=== PATIENT | male | born 1955 | race Caucasian/White ===

== ENCOUNTER 2021-01-17 20:10 | Emergency (ER) | payer OTHER, SELFPAY ==
[2021-01-17 20:17] VITALS: BP 174/114; PULSE 77; PULSE 88; RESP 18; TEMP 36.3; O2SAT 94; O2SAT 98
[2021-01-17 20:20] VITALS: BP 174/114; PULSE 88; O2SAT 94
--- NOTE | 2021-01-17 20:22 | ED.DENTAL ---
HPI - Dental/Oral General Chief complaint: Dental/Oral Stated complaint: Lower left jaw pain Time Seen by Provider: 01/17/21 20:17 Source: patient and family Mode of arrival: ambulatory Limitations: no limitations History of Present Illness HPI Narrative: Patient is a 65-year-old male who presents to emergency department for evaluation of left lower jaw pain history of gross dental decay notes pain and numbness to the left lower jaw has been there for over 5 days has a dental appointment for Tuesday patient denies URI symptoms or other complaints. Related Data Allergies Allergy/AdvReac Type Severity Reaction Status Date / Time No Known Allergies Allergy Verified 01/17/21 20:20 Review of Systems Review of Systems: All systems reviewed & are unremarkable except as noted in HPI and below PMFSH Past Medical History Medical History Anticoagulation adequate Hypertension Obesity Pericarditis Social History Social History (Updated 01/17/21 @ 20:23 by Aries Valladares PA-C) Smoking status: Never smoker Exam Narrative: Exam Narrative: GENERAL: Well-appearing, well-nourished, and in no acute distress. HEAD: Normocephalic, atraumatic. EYES: PERRLA and EOMI. ENT: Nares clear, no rhinorrhea or epistaxis. Mucous membranes moist. Gross dental caries no space-occupying lesions floor the mouth is soft uvula midline no trismus or drooling no facial swelling tenderness along the outside lower jaw CHEST: Clear to auscultation. No respiratory distress. No wheezes rales or rhonchi HEART: Regular rate and rhythm. No murmur heard. Normal peripheral pulses. ABDOMEN: Soft, nontender, nondistended EXTREMITIES: Normal range of motion. No edema. SKIN: Warm, dry, no rash. NEURO: No focal deficits. Alert and oriented x3. Cranial nerves II through XII grossly intact PSYCH: Normal mood and affect. Course Course Emergency Course: Patient in the room no distress aware of case findings treatment plan diagnosis agreeing to follow-up as directed or to return if symptoms worsen or concerns Vital Signs Vital signs: Vital Signs Temperature 97.4 F L 01/17/21 20:17 Pulse Rate 77 01/17/21 20:17 Respiratory Rate 18 01/17/21 20:17 Blood Pressure 174/114 H 01/17/21 20:17 Pulse Oximetry 98 02/27/21 20:17 Temperature 97.4 F L 01/17/21 20:17 Pulse Rate 88 01/17/21 20:20 Respiratory Rate 18 01/17/21 20:17 Blood Pressure 174/114 H 01/17/21 20:20 Pulse Oximetry 94 01/17/21 20:20 MDM - Dental/Oral MDM Narrative Medical decision making narrative: Patients pain and complaint coupled with physical findings are consistent with dentalgia. There are no focal signs of space occupying lesions that are compromising to the airway. The floor of the mouth is soft with no signs of Demarco Angina. Patient is without trismus or drooling and able to swallow secretions. Patient is felt appropriate for discharge home with dental follow up. Discharge Plan Discharge Clinical Impression: Dental abscess Patient Disposition: Home, Self-Care Condition: Stable Instructions: Antibiotic Form, Dental Abscess (ED) Additional Instructions: Follow up with your primary care provider within 5-7 days. Go to ER for shortness of breath, difficulty breathing, chest pain, fever/chills, weakness, nauseau/vomitting, unable to swallow or open the mouth etc. or any other concerns. Follow-up with dentistry Tuesday as planned Take any prescribed medications as directed. Stay well-hydrated If you do not have a drug allergy to tylenol or motrin and can tolerate it then take tylenol or motrin as needed for discomfort/pain. Prescriptions: New hydrocodone-acetaminophen 5-325 mg tablet 1 tablet PO Q6H PRN (Reason: pain) Qty: 20 RF: 0 amoxicillin-pot clavulanate [Augmentin] 875-125 mg tablet 1 tablet PO Q12H 10 Days Qty: 20 RF: 0 chlorhexidine gluconate [Peridex] 0.12 % mouthwash
[2021-01-17] MEDS: HYDROcodone/acetaminophen (*CRX) 7.5-325 MG TABLET 1 TAB PO (20:28)
== END 2021-01-17 21:18 | disposition home or self-care (01) ==
PROVIDERS: Emergency Provider Emergency Medicine
DX: K04.7 Periapical abscess without sinus (principal); I10 Essential (primary) hypertension; E66.9 Obesity, unspecified; I31.9 Disease of pericardium, unspecified
CPT/HCPCS: 99283; A9270

== ENCOUNTER 2022-05-25 10:08 | Emergency (ER) | payer OTHER, SELFPAY ==
[2022-05-25] VITALS (12 sets, daily range): BP systolic 140–164; BP diastolic 89–105; PULSE 75–136; RESP 13–25; TEMP 36.3–36.7; O2SAT 95–98
--- NOTE | ~2022-05-25 | XR_ITS ---
XR chest 1V portable DATE: 05/25/2022 15:07 INDICATION: Tachycardia TECHNIQUE: Portable upright AP views on 05/25/2022 at 1502 and 1503 hours COMPARISON: 05/25/2022 CT abdomen pelvis FINDINGS: Status post sternotomy. Pericardial and mitral annulus calcifications overlie the cardiac silhouette. Borderline heart size. Discoid atelectasis or scarring in the lower lung zones. No pulmonary consolidation is evident. Proba ble chronic mild left pleural thickening and costophrenic angle blunting. No pleural effusion or pneu mothorax. IMPRESSION: Mild bibasilar discoid atelectasis or scarring Status post sternotomy Borderline heart size. Pericardial and mitral annulus calcifications Reviewed, dictated and finalized at location A.
--- NOTE | ~2022-05-25 | CT_ITS ---
EXAMINATION: CT abdomen pelvis wo con DATE: 05/25/2022 12:47 INDICATION: Diarrhea and abdominal pain TECHNIQUE: Computed tomography (CT) of the abdomen and pelvis was performed without intravenous contr ast. The dose-length product (DLP) was 1397.07 mGy-cm. Automated exposure control and iterative recon struction technique were employed. COMPARISON: None FINDINGS: Minimal dependent atelectasis is present in the lung bases. Cardiomegaly is noted. There is calcification of the mitral annulus. There is also calcification of the pericardium. The liver is di ffusely low in attenuation when compared with the spleen, consistent with hepatic steatosis. The sple en, pancreas, and adrenal glands are normal. The gallbladder is mildly distended, likely due to fasti ng state There is a 2 mm nonobstructing stone of the left kidney. There is a 1 mm nonobstructing ston e of the right kidney. No stones are identified in the ureters or bladder. There is no hydronephrosis or hydroureter. There is calcified atherosclerosis of the aorta and many of the other arteries. No p athologically enlarged abdominal or pelvic lymph nodes are identified. An IVC filter is noted. There is a right inguinal hernia containing fat. There is severe lumbar spondylosis. IMPRESSION: 1. No CT correlate for the patient's symptoms. 2. Diffuse hepatic steatosis. 3. Bilateral nonobstructing nephrolithiasis. Reviewed, dictated and finalized at location B.
--- NOTE | 2022-05-25 10:41 | ECG_ITS ---
Measurements Intervals [place] Rate: 111 P: ID: 0 QRS: 67 QRSD: 118 T: -74 QT: 350 QTc: 477 Interpretive Statements ATRIAL FIBRILLATION WITH RAPID VENTRICULAR RESPONSE INCOMPLETE RIGHT BUNDLE BRANCH BLOCK ST-T WAVE ABNORMALITY IN ANTEROLAT/INF LEADS- CONSIDER ISCHEMIA ABNORMAL ECG Electronically Signed On 05-25-2022 10:59:54 CDT by Missael Low D.O.
[2022-05-25 10:56] LABS: Basophils Absolute Auto 0.1 K/mm3 (0.0-0.1); Eosinophils Absolute Auto 0.1 K/mm3 (0-0.3); Eosinophils Percent Auto 1.2 % (0-4.4); Hematocrit 48.3 % (42.0-52.0); Hemoglobin 16.1 g/dL (14.0-18.0); Immature Granulocyte Absolute 0.03 K/mm3 (0.00-0.031); Immature Granulocyte Percent A 0.4 % (0-0.5); Lymphocytes Absolute Auto 2.64 K/mm3 (0.9-3.2); Lymphocytes Percent Auto 32.4 % (18.3-44.2); Mean Corpuscular HGB Conc 33.3 g/dl (32-36); Mean Corpuscular Hemoglobin 30.6 pg (26-34); Mean Corpuscular Volume 91.7 fl (80-100); Mean Platelet Volume 9.8 fl (7.4-10.4); Monocytes Absolute Auto 0.8 K/mm3 (0.1-0.6); Monocytes Percent Auto 10.3 % (2.6-8.5); Neutrophils Absolute Auto 4.5 K/mm3 (1.3-6.7); Neutrophils Percent Auto 54.7 % (45.5-73.1); Platelet Count Result 345 k/mm3 (150-375); Red Blood Count 5.27 M/mm3 (4.6-6.20); Red Cell Distribution Width 13.8 % (11.5-14.5); White Blood Count 8.2 K/mm3 (4.5-10.0)
[2022-05-25 11:07] LABS: Alanine Aminotransferase 43 U/L (6-50); Albumin Level 4.7 g/dL (3.5-5.1); Alkaline Phosphatase 105 U/L (38-126); Anion Gap 12 mmol/L (8-16); Aspartate Amino Transferase 32 U/L (17-59); Bilirubin,Total 1.2 mg/dL (0.2-1.3); Blood Urea Nitrogen 15 mg/dL (9-20); Carbon Dioxide 19 mmol/L (22-30); Chloride 107 mmol/L (98-107); Estimated CRCL calculation 83 ml/min; Estimated Glomerular Filt Rate > 60; Glucose 136 mg/dL (65-110); Lipase 38 U/L (23-300); Potassium 3.4 mmol/L (3.4-5.0); Sodium 138 mmol/L (137-145)
[2022-05-25] MEDS: ONDANSETRON INJ 4 MG/2 ML VIAL IV PUSH (12:09)
[2022-05-25] MEDS: LACTATED RINGERS 1,000 ML 999 ML IV CONT ×2 (12:14→15:14)
[2022-05-25] MEDS: ASPIRIN 81 MG CHEWABLE TABLET 324 MG PO (12:15)
[2022-05-25] MEDS: FAMOTIDINE 20 MG TABLET PO (12:53)
--- NOTE | 2022-05-25 12:59 | PC.NURSE ---
Patient aware of need for urine and stool specimen. States he cannot go.
--- NOTE | 2022-05-25 13:13 | PC.NURSE ---
Per EDP Fabiola, no orthostatics needed.
[2022-05-25 13:37] LABS: Troponin I < 0.012 ng/mL (0.000-0.034)
[2022-05-25 13:40] LABS: SARS-CoV-2 RNA PCR Negative
[2022-05-25 14:00] LABS: Appearance Urine Clear (Clear); Bilirubin Urine 1+ (Negative); Color Urine Amber (Yellow); Glucose Urine UA Negative (Negative); Ketones Urine Negative (Negative); Leukocyte Esterase Ur Negative LEU/UL (Negative); Nitrate Urine Negative (Negative); Protein Urine 2+ mg/dL (Negative); Specific Grav Ur >= 1.030 (1.001-1.035); Urobilinogen Urine 0.2 mg/dL (<2.0)
[2022-05-25 14:02] LABS: Add Urine Microscopic? YES; Blood Urine Trace-Intact (Negative)
[2022-05-25 14:09] LABS: Bacteria Urine Trace /hpf; Mucus Urine Heavy /lpf; Squamous Epithelial Cell Urine Rare /hpf (Few)
[2022-05-25 14:20] LABS: Troponin I < 0.012 ng/mL (0.000-0.034)
--- NOTE | 2022-05-25 14:55 | ED.NAVMDI ---
HPI - Nausea/Vomiting/Diarrhea General Chief complaint: Nausea/Vomiting/Diarrhea Stated complaint: diarrhea x3 weeks Time Seen by Provider: 05/25/22 10:58 History of Present Illness HPI Narrative: 66-year-old male presenting with several weeks of diarrhea, he states that he has also been feeling nauseous on and off, denies any fevers or chills, cough, he does state that he is having some epigastric but not any real chest pain or difficulty breathing. [facility] a [facility] but states that he has had cardiac surgery years ago with someone at the [facility]. Related Data Home Medications Medication Instructions Recorded Confirmed apixaban 5 mg tablet 5 mg PO BID 05/25/22 atorvastatin 40 mg tablet 40 mg PO BID 05/25/22 cholecalciferol (vitamin D3) 50 50 mcg PO DAILY 05/25/22 mcg (2,000 unit) capsule (Vitamin D3) diltiazem HCl 360 mg 360 mg PO DAILY 05/25/22 tablet,extended release 24 hr ferrous sulfate 325 mg (65 mg 325 mg PO DAILY 05/25/22 iron) tablet furosemide 40 mg tablet 60 mg PO DAILY 05/25/22 lisinopril 5 mg tablet 5 mg PO BID 05/25/22 metoprolol tartrate 25 mg tablet 25 mg PO BID 05/25/22 pantoprazole 40 mg tablet,delayed 40 mg PO 05/25/22 release potassium chloride 10 mEq 10 meq PO DAILY 05/25/22 05/25/22 tablet,extended release Allergies Allergy/AdvReac Type Severity Reaction Status Date / Time No Known Allergies Allergy Verified 01/17/21 20:20 Review of Systems Review of Systems: CONST: No fever. HEENT: No sore throat C/V: No chest pain RESP: No cough GI: Reports abdominal pain, nausea, vomiting[, diarrhea] : No dysuria. M/S: No joint pain. SKIN: No rash. NEURO: [No headache or focal numbness or weakness] PSYCH: [No depression] [facility] Past Medical History Medical History (Updated 05/25/22 @ 14:57 by Tara Hicks MD) Anticoagulation adequate Hypertension Obesity Pericarditis Surgical History Surgical History (Updated 05/25/22 @ 14:57 by Tara Hicks MD) History of open heart surgery Social History Social History Smoking status: Never smoker Exam Narrative: EXAMINATION OF ORGAN SYSTEMS/BODY AREAS: Constitutional: Vital signs per nursing GENERAL:[No acute distress, non-toxic appearing.] HEAD: Normal with no signs of head trauma. EYES: EOMI, conjunctiva normal ENT: Hearing grossly intact LUNGS: Nonlabored breathing. HEART: [Regular rate and rhythm] ABD: [Soft], [nontender to palpation] EXT: Normal range of motion SKIN: [No rashes or lesions.] NEURO: [Alert and oriented x 3. No gross focal sensory or strength deficits.] PSYCH: Normal affect Course Vital Signs Vital signs: Vital Signs Temperature 97.4 F L 05/25/22 10:31 Pulse Rate 75 05/25/22 10:31 Respiratory Rate 20 05/25/22 10:31 Blood Pressure 153/89 H 05/25/22 10:31 Pulse Oximetry 96 05/25/22 10:31 Oxygen Delivery Room Air 05/25/22 10:31 Temperature 98.1 F 05/25/22 11:50 Pulse Rate 107 H 05/25/22 12:47 Respiratory Rate 25 H 05/25/22 12:47 Blood Pressure 164/95 H 05/25/22 11:50 Pulse Oximetry 96 05/25/22 11:50 Oxygen Delivery Room Air 05/25/22 11:50 MDM - Nausea/Vomiting/Diarrhea MDM Narrative Medical decision making narrative: 66-year-old male presenting with 2 weeks of loose stool and 1 week of alejandra diarrhea, vital signs stable here, exam shows soft nontender abdomen, well-appearing patient, I suspect possible viral illness, dehydration or electrolyte abnormality, gastritis, doubt ACS/PA without any chest pain or difficulty breathing. EKG does show possible elevation in aVR, discussed EKG with Dr. Nye who felt not STEMI, and troponin was negative and he has no chest pain. Other labs only notable for a low/normal potassium and low carbon dioxide which is consistent with his diarrhea, patient is rehydrated here, on reevaluation states that his symptoms are improved, he
[2022-05-25] MEDS: DICYCLOMINE HCL 10 MG CAPSULE 20 MG PO (15:14)
--- NOTE | 2022-05-25 16:39 | PC.NURSE ---
Patient unable to give stool specimen while in ED. EDP Fabiola aware.
== END 2022-05-25 16:43 | disposition home or self-care (01) ==
PROVIDERS: Emergency Provider Emergency Medicine
DX: R19.7 Diarrhea, unspecified (principal); R11.2 Nausea with vomiting, unspecified; Z20.822 Contact with and (suspected) exposure to COVID-19; I10 Essential (primary) hypertension; E66.9 Obesity, unspecified; Z68.41 Body mass index [BMI] 40.0-44.9, adult; Z79.01 Long term (current) use of anticoagulants
CPT/HCPCS: 36415; 71045; 74176; 80053; 81001; 83690; 84484; 85025; 93005; 96361; 96374; 99284; A9270; C9803; J2405; J7120; U0003; U0005